=== PATIENT | male | born 1995 | race Caucasian/White ===

== ENCOUNTER 2018-03-16 19:16 | Emergency (ER) | payer SELFPAY ==
--- NOTE | 2018-03-16 19:22 | EDM.PDOC ---
ED HPI GENERAL MEDICAL PROBLEM - General Chief Complaint: Lower Extremity Injury/Pain Stated Complaint: LEFT FOOT TRAUMA Time Seen by Provider: 03/16/18 19:18 Source of Information: Reports: Patient History Limitations: Reports: No Limitations - History of Present Illness INITIAL COMMENTS - FREE TEXT/NARRATIVE: HISTORY AND PHYSICAL: History of present illness: 22-year-old white male presenting emergency department with chief complaint of left great toe trauma. Patient states that he is working with his dad with a backup. He was moving some hydraulics and his father didn't see him and was placing the pocket of the back or down inadvertently landing on his left toe. He felt immediate pain and noticed that his toenail had been pulled off. There was some bleeding but not significant. Denies any other trauma and did not pass out. He is up-to-date on tetanus. Denies any other injury. He denies any nausea, vomiting, shortness breath, chest pain, palpitations, syncopal or sews, or focal neurologic deficits. Review of systems: As per history of present illness and below otherwise all systems reviewed and negative. Past medical history: As per history of present illness and as reviewed below otherwise noncontributory. Surgical history: As per history of present illness and as reviewed below otherwise noncontributory. Social history: No reported history of drug or alcohol abuse. Family history: As per history of present illness and as reviewed below otherwise noncontributory. Physical exam: HEENT: Atraumatic, normocephalic, pupils reactive, negative for conjunctival pallor or scleral icterus, mucous membranes moist, throat clear, neck supple, nontender, trachea midline. Lungs: Clear to auscultation, breath sounds equal bilaterally, chest nontender. Heart: S1S2, regular, negative for clicks, rubs, or JVD. Abdomen: Soft, nondistended, nontender. Negative for masses or hepatosplenomegaly. Negative for costovertebral tenderness. Pelvis: Stable nontender. Genitourinary: Deferred. Rectal: Deferred. Extremities: There is nail avulsion of the left great toe neurovascular intact. Nail bed intact. Atraumatic, negative for cords or calf pain. Neurovascular unremarkable. Neuro: Awake, alert, oriented. Cranial nerves II through XII unremarkable. Cerebellum unremarkable. Motor and sensory unremarkable throughout. Exam nonfocal. Diagnostics: Left great toe x-ray Therapeutics: Digital block Impression: Left great toe nail avulsion Plan: X-ray of the left great toe showed no visible osseous fractures or bone lesions. Nail bed was examined and there was no defects. 2 holes were placed in the top of the toenail with an 18-gauge needle for drainage. Toenail was reinserted underneath superficial layers of the nail folds and Dermabond was placed to secure in place. Patient tolerated procedure well with no complications. Bandages were placed and patient was instructed to keep the area clean and dry. If he sees any signs of infection including fever, chills, worsening erythema, drainage, or increased pain he should return to emergency department for reevaluation. He should also follow-up with his primary care Dr. Solorzano. left big toe Pain Score (Numeric/FACES): 4 - Related Data Allergies Allergy/AdvReac Type Severity Reaction Status Date / Time No Known Allergies Allergy Verified 03/16/18 19:20 Home Meds: Home Meds . [No Known Home Meds] 03/16/18 [History] Review of Systems - Review of Systems Review Of Systems: See Below ED EXAM, GENERAL - Physical Exam Exam: See Below Course - Vital Signs Last Recorded V/S: Last Vital Signs Temp 97.7 F 03/16/18 19:20 Pulse 102 H 03/16/18 19:20 Resp 18 03/16/18 19:20 BP 139/72 03/16/18 19:20 Pulse Ox 98 03/16/18 19:20 - Orders/Labs/Meds Orders: Active Orders 24 hr Category Date Time Status Toes Great Toe Lt TA [CR] Stat Exams 03/16/18 19:30 Taken Meds: Medications Discontinued Medications Generic Name Dose Route Start Last Admin Trade Name Ganesh PRN Reason Stop Dose Admin Lidocaine HCl 20 ml 03/16/18 19:27 03/16/18 19:34 Xylocaine 1% INJECT 03/16/18 19:28 20 ml ONETIME ONE Administration Octyl Cyanoacrylate 1 applic 03/16/18 20:06 03/16/18 20:16 Dermabond Advance TOP 03/16/18 20:07 1 applic ONETIME ONE Administration Departure - Departure Time of Disposition: 20:24 Disposition: Home, Self-Care 01 Condition: Good Clinical Impression: Avulsion of toenail of left foot - Discharge Information Forms: ED Department Discharge Additional Instructions: My general discharge The following information is given to patients seen in the emergency department who are being discharged to home. This information is to outline your options for follow-up care. We provide all patients seen in our emergency department with a follow-up referral. The need for follow-up, as well as the timing and circumstances, are variable depending upon the specifics of your emergency department visit. If you don't have a primary care physician on staff, we will provide you with a referral. We always advise you to contact your personal physician following an emergency department visit to inform them of the circumstance of the visit and for follow-up with them and/or the need for any referrals to a consulting specialist. The emergency department will also refer you to a specialist when appropriate. This referral assures that you have the opportunity for follow-up care with a specialist. All of these measure are taken in an effort to provide you with optimal care, which includes your follow-up. Under all circumstances we always encourage you to contact your private physician who remains a resource for coordinating your care. When calling for follow-up care, please make the office aware that this follow-up is from your recent emergency room visit. If for any reason you are refused follow-up, please contact the [facility] Emergency Department at and asked to speak to the emergency department charge nurse. [address] [address] - My Orders Last 24 Hours: My Active Orders 03/16/18 19:30 Toes Great Toe Lt TA [CR] Stat - Assessment/Plan Last 24 Hours: My Active Orders 03/16/18 19:30 Toes Great Toe Lt TA [CR] Stat
[2018-03-16] MEDS: Lidocaine 1% 20 ML MDV INJECT ONE (19:34)
[2018-03-16] MEDS: Octyl 2-Cyanoacrylate 1 Tube TOP ONE (20:16)
--- NOTE | 2018-03-17 09:43 | CR ---
EXAM DATE: 03/16/18 PATIENT'S AGE: 22 Patient: SEFERINO SANTOS Facility: [place], [place] Site . Site : 1995 Study: XRay Extremity Left [id number] toe-03/16/2018 8:01:43 PM Ordering Physician: Eulogio Guadalupe Final Report: INDICATION: Left great toe trauma TECHNIQUE: Three views left great toe COMPARISON: None FINDINGS: Bones: Alignment is normal. No fractures or bone lesions. Joint spaces: Unremarkable. Soft tissues: Unremarkable. IMPRESSION: Negative. Dictated by Param Bello MD @ 03/16/2018 8:11:27 PM Dictated by: Param Bello MD @ 03/16/2018 20:11:30 (Electronic Signature) Report Signed by Proxy. JOEL
== END 2018-03-16 20:33 | disposition home or self-care (01) ==
LOC: MW.ED 19:16
DX: S91.202A Unspecified open wound of left great toe with damage to nail, initial encounter (principal); W20.8XXA Other cause of strike by thrown, projected or falling object, initial encounter
CPT/HCPCS: 11760; 73660; 99283; A9270

== ENCOUNTER 2023-10-02 16:39 | Emergency (ER) | payer SELFPAY ==
[2023-10-02] MEDS ORDERED: Lidocaine 1% with EPINEPHrine 1:100,000 20 ML MDV INJECT ONE (17:30)
[2023-10-02] MEDS ORDERED: Diphtheria,Pertussis(Acell),Tetanus Vaccine 0.5 ML Syringe IM ONE (17:30)
== END 2023-10-02 18:14 | disposition home or self-care (01) ==
LOC: MW.ED 16:39
DX: S61.412A Laceration without foreign body of left hand, initial encounter (principal); Z23 Encounter for immunization; W26.8XXA Contact with other sharp object(s), not elsewhere classified, initial encounter
CPT/HCPCS: 12001; 90471; 90715; 99282-25; 99283; J3490